=== PATIENT | male | born 1995 | race Asian ===

== ENCOUNTER 2023-01-25 16:55 | Emergency (ER) | payer OTHER ==
[2023-01-25 17:24] VITALS: BP 118/54; PULSE 86; RESP 18; TEMP 98; BMI 29.9
== END 2023-01-25 18:57 | disposition home or self-care (01) ==
LOC: JERFT 16:55
DX: S70.12XA Contusion of left thigh, initial encounter (principal); M79.652 Pain in left thigh; V49.40XA Driver injured in collision with unspecified motor vehicles in traffic accident, initial encounter; Y93.I9 Activity, other involving external motion; Y92.9 Unspecified place or not applicable
CPT/HCPCS: 73552-TC-LT-FY; 99283-25